=== PATIENT | female | born 1975 | race African-American/Black ===

== ENCOUNTER 2016-12-31 21:17 | Emergency (ER) | payer OTHER ==
[2016-12-31 23:52] VITALS: BP 137/84
--- NOTE | 2016-12-31 23:55 | ED ---
Upper Extremity Pain - HPI Summary HPI Summary: C/O RT HAND PAIN FOR DAYS. ALSO LET LATERAL CHEST PAIN FOR DAYS. PATIENT HAS CHRONIC PAIN THROUGHOUT HER WHOLE BODY SO, IT IS DIFFICULT TO DETERMINE WHAT IS NEW OR CHRONIC PAIN. NO SOB. NO FEVER. NO CALF PAIN OR SWELLING. - History of Current Complaint Chief Complaint: UCGeneralIllness Stated Complaint: RT HAND/BACK PAIN-FALL Time Seen by Provider: 12/31/16 23:32 Hx Obtained From: Patient Hx Last Menstrual Period: 12/12/16 Mechanism Of Injury: Unknown - PATIENT FELL 1 1/2 WEEK AGO. Onset/Duration: Still Present Timing: Constant Pain Location: Hand, Other: - LEFT LATERAL CHEST Aggravating Factor(s): Movement Alleviating Factor(s): Nothing Associated Signs & Symptoms: Negative: Fever, SOB - Allergies/Home Medications Allergies/Adverse Reactions: Allergies Allergy/AdvReac Type Severity Reaction Status Date / Time fish Allergy Severe Anaphylatic Uncoded 12/31/16 22:21 Shock kiwi Allergy Intermediate Hives/Diff. Uncoded 12/31/16 22:21 Breathing/I tching melon Allergy Intermediate Hives/Diff. Uncoded 12/31/16 22:21 Breathing/I tching yellow fruits Allergy Mild Hives/Diff. Uncoded 12/31/16 22:21 Breathing/I tching avacado Allergy Hives/Diff. Uncoded 12/31/16 22:21 Breathing/I tching peanuts Allergy Anaphylatic Uncoded 12/31/16 22:21 Shock Home Medications: Home Medications Ascorbic Acid TAB* [Vitamin C TAB*] 1,500 mg PO BID 12/31/16 [History Confirmed 12/31/16] PMH/Surg Hx/FS Hx/Imm Hx Previously Healthy: No - CHRONIC PAIN Cardiovascular History: Denies: Hx Congestive Heart Failure, Hx Hypertension, Hx Pacemaker/ICD, Other Cardiovascular Problems/Disorders Respiratory History: Reports: Hx Asthma Denies: Hx Chronic Obstructive Pulmonary Disease (COPD), Other Respiratory Problems/Disorders - Surgical History Surgery Procedure, Year, and Place: ENDOMETIAL AND uterine fibroids,ovarian cysts 2008, tonsilectomy,right shoulder 2010, Infectious Disease History: No Infectious Disease History: Denies: Traveled Outside the [place] in Last 30 Days - Social History Alcohol Use: Rare Substance Use Type: Reports: None Hx Tobacco Use: No Smoking Status (MU): Never Smoked Tobacco Review of Systems Constitutional: Other - CHRONIC BODY PAIN Eyes: Negative ENT: Negative Positive: Other - LEFT LATERAL CHEST PAIN Negative: Shortness Of Breath Gastrointestinal: Negative Musculoskeletal: Other - CHRONIC PAIN Skin: Negative Neurological: Negative Psychological: Normal All Other Systems Reviewed And Are Negative: Yes Physical Exam Triage Information Reviewed: Yes Vital Signs On Initial Exam: Initial Vitals Temp Pulse Resp BP Pulse Ox 98.7 F 73 22 111/96 98 12/31/16 22:06 12/31/16 22:06 12/31/16 22:06 12/31/16 22:06 12/31/16 22:06 Vital Signs Reviewed: Yes Appearance: Positive: Well-Appearing Skin: Positive: Skin Color Reflects Adequate Perfusion Neck: Positive: Supple Respiratory/Lung Sounds: Positive: Clear to Auscultation, Breath Sounds Present , Decreased Breath Sounds Cardiovascular: Positive: Normal, RRR Abdomen Description: Positive: Nontender, Other: Bowel Sounds: Positive: Present Musculoskeletal: Positive: Pain @ - GENERALIZED Neurological: Positive: Normal Psychiatric: Positive: Normal Diagnostics - Vital Signs Vital Signs Temp Pulse Resp BP Pulse Ox 12/31/16 22:06 98.7 F 73 22 111/96 98 - Laboratory Lab Statement: Any lab studies that have been ordered have been reviewed, and results considered in the medical decision making process. Course/Dx - Course Assessment/Plan: RX NORCO. DISCHARGE HOME STABLE. - Diagnoses Provider Diagnoses: Hand pain, Rib pain on left side Discharge - Discharge Plan Condition: Stable Disposition: HOME Prescriptions: HYDROcodone/ACETAMIN 5-325 MG* [[place] 5-325 TAB*] 1 tab PO Q6H PRN #10 tab MDD 4 PRN Reason: Pain Additional Instructions: FOLLOW UP WITH YOUR DOCTOR FOR YOUR RIGHT HAND AND LEFT RIB PAIN. GO TO THE EMERGENCY DEPARTMENT FOR ANY WORSENING OF YOUR CONDITION; SHORTNESS OF BREATH, ABDOMINAL PAIN, YOU FEEL ILL OR QUESTIONS OR CONCERNS.
[2016-12-31] MEDS ORDERED: HYDROcodone/ACETAMIN 5-325 MG* 1 TAB PO ONE (23:59)
--- NOTE | 2017-01-01 07:41 | RAD ---
HISTORY: Trauma, left rib pain COMPARISONS: None VIEWS: 3, Frontal and oblique views of the left hemithorax. FINDINGS: There is no displaced rib fracture or pneumothorax. The visualized lungs are clear. IMPRESSION: NO DISPLACED RIB FRACTURE OR PNEUMOTHORAX.
--- NOTE | 2017-01-01 07:44 | RAD ---
HISTORY: Trauma, right hand pain COMPARISONS: December 23, 2016 VIEWS: 4, Frontal, lateral, and oblique views of the right hand FINDINGS: BONE DENSITY: Normal. BONES: There is no displaced fracture. JOINTS: There is no arthropathy. ALIGNMENT: There is no dislocation. SOFT TISSUES: Unremarkable. OTHER FINDINGS: None. IMPRESSION: NO ACUTE OSSEOUS INJURY. IF SYMPTOMS PERSIST, RECOMMEND REPEAT IMAGING.
== END 2017-01-01 00:17 | disposition home or self-care (01) ==
LOC: UCCORT 21:17
DX: M79.641 Pain in right hand (principal); R07.81 Pleurodynia; J45.909 Unspecified asthma, uncomplicated
CPT/HCPCS: 99213; G0463

== ENCOUNTER 2017-08-19 21:48 | Emergency (ER) | payer OTHER ==
[2017-08-19 22:16] VITALS: BP 153/87
--- NOTE | 2017-08-19 22:33 | UC ---
Knee Pain HPI - HPI Summary HPI Summary: WORSENING BILATERAL KNEE PAIN SINCE JUNE 2017, RIGHT WORSE THAN LEFT. CURRENTLY BEING EVALUATED BY DRS. 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 HAS FUTURE MRI OF KNEE/S SCHEDULED. PRESENTS TODAY DUE TO MEMORY OF HAVING TICK BITE IN JUNE, WOULD LIKE TESTING FOR LYME. - History of Current Complaint Chief Complaint: UCGeneralIllness Stated Complaint: POSSIBLE TICK BITE Time Seen by Provider: 08/19/17 21:49 Hx Obtained From: Patient Hx Last Menstrual Period: 08/17/17 Onset/Duration: Gradual Onset, Lasting Weeks, Still Present, Worse Since - PROGRESSIVE Severity Initially: Moderate Severity Currently: Severe Character: Dull, Aching, Stiffness Aggravating Factor(s): Movement, Weight Bearing Alleviating Factor(s): Rest, Position Associated Signs And Symptoms: Positive: Swelling Able to Bear Weight: Yes - Allergies/Home Medications Allergies/Adverse Reactions: Allergies Allergy/AdvReac Type Severity Reaction Status Date / Time Dust Mite Extract Allergy Shortness Verified 08/19/17 21:57 of Breath fish Allergy Severe Anaphylatic Uncoded 08/19/17 21:57 Shock kiwi Allergy Intermediate Hives/Diff. Uncoded 08/19/17 21:57 Breathing/I tching melon Allergy Intermediate Hives/Diff. Uncoded 08/19/17 21:57 Breathing/I tching yellow fruits Allergy Mild Hives/Diff. Uncoded 08/19/17 21:57 Breathing/I tching artificial sweetener Allergy Nausea And Uncoded 08/19/17 21:57 Vomiting avacado Allergy Hives/Diff. Uncoded 08/19/17 21:57 Breathing/I tching peanuts Allergy Anaphylatic Uncoded 08/19/17 21:57 Shock perfumes/ cleansing agents Allergy Shortness Uncoded 08/19/17 21:[address] CONTRAST AdvReac EXTREME Uncoded 08/19/17 21:57 NAUSEAS AND DISORIENTED FOR DAYS Home Medications: Home Medications Acetaminophen TAB* [Tylenol TAB*] 650 mg PO Q4H PRN 08/19/17 [History Confirmed 08/19/17] PMH/Surg Hx/FS Hx/Imm Hx Previously Healthy: Yes - Surgical History Surgical History: Yes Surgery Procedure, Year, and Place: ENDOMETRIAL AND uterine fibroids,ovarian cysts 2009,. tonsilectomy,. right shoulder 2011 - RCT - Family History Known Family History: Positive: Other - first cousin had a PE - Social History Lives: With Family Alcohol Use: None Substance Use Type: None Smoking Status (MU): Never Smoked Tobacco Review of Systems Constitutional: Negative Skin: Negative Eyes: Negative ENT: Negative Respiratory: Negative Cardiovascular: Negative Gastrointestinal: Negative Genitourinary: Negative Motor: Negative Neurovascular: Negative Musculoskeletal: Arthralgia - BILATERAL KNEES, Myalgia - BILATERAL KNEES Neurological: Negative Psychological: Negative Is Patient Immunocompromised?: No All Other Systems Reviewed And Are Negative: Yes Physical Exam Triage Information Reviewed: Yes Appearance: Well-Appearing, No Pain Distress, Well-Nourished Vital Signs: Initial Vital Signs Temp 97.4 F 08/19/17 22:04 Pulse 88 08/19/17 22:04 Resp 16 08/19/17 22:04 BP 153/87 08/19/17 22:04 Pulse Ox 99 08/19/17 22:04 Vital Signs Reviewed: Yes Eye Exam: Normal ENT Exam: Normal ENT: Positive: Normal ENT inspection Dental Exam: Normal Neck exam: Normal Neck: Positive: Supple, Nontender, No Lymphadenopathy Respiratory Exam: Normal Respiratory: Positive: Chest non-tender, Lungs clear, Normal breath sounds, No respiratory distress, No accessory muscle use Cardiovascular Exam: Normal Cardiovascular: Positive: RRR, No Murmur, Pulses Normal, Brisk Capillary Refill Abdominal Exam: Normal Abdomen Description: Positive: Nontender, No Organomegaly Musculoskeletal: Positive: ROM Intact, No Edema, Strength Limited @ - BILATERAL KNEES Neurological Exam: Normal Psychological Exam: Normal Skin Exam: Normal Knee Pain Course/Dx - Differential Dx/Diagnosis Differential Diagnosis/HQI/PQRI: Bursitis, Internal Derangement Of Knee, Patellofemoral Syndrome, Sprain, Strain, Other - TICK BORNE ILLNESS Provider Diagnoses: BILATERAL KNEE PAIN. REMOTE TICK BITE. Discharge - Discharge Plan Condition: Stable Disposition: HOME Patient Education Materials: Lyme Disease (ED), Knee Pain (ED), Arthralgia (ED) Referrals: Alfonzo Álvarez MD [Medical Doctor] - Karlos Ortiz MD [Primary Care Provider] -
--- NOTE | 2017-08-22 07:20 | UC ---
Progress - Progress Note Progress Note: lyme neg, not treated. remote tic bit per note
== END 2017-08-19 22:32 | disposition home or self-care (01) ==
LOC: UCCORT 21:48
DX: M25.562 Pain in left knee (principal); M25.561 Pain in right knee
CPT/HCPCS: 86618; 99211; G0463

== ENCOUNTER 2017-10-07 21:32 | Emergency (ER) | payer OTHER ==
[2017-10-07 22:12] VITALS: BP 133/53
--- NOTE | 2017-10-07 23:02 | UC ---
HPI Wound/Suture Re-check - HPI Summary HPI Summary: 42 y/o female presents to the urgent care requesting change of dressing s/p RT trigger and carpal tunnel release surgery 2 days ago. She was instructed to keep the dressing on until her post op appt next Wednesday10/15/2017. However Yesterday dressing was coming off on its own. She called the office and was instructed that she could redo the outer dressing. She did so with a friend who is a nurse. But when she did the dressing change she felt that the yellow dressing that is closest to the skin was moved. Also, her hand is swollen with mild pain . Seh was instructed to flex her finger 10X every hr. Seh was Rx Kathleen for pain. She is anxious that something is wrong with the incisions. DR Joshua ferrer the [facility] did surgery. ain is 2/10. Pt deneis fever, SOB, chest pain, numbness and tingling over the hand. - History Of Current Complaint Chief Complaint: UCUpperExtremity Stated Complaint: POST OPP LEFT HAND BANDAGE CHECK Time Seen by Provider: 10/07/17 22:19 Hx Obtained From: Patient Hx Last Menstrual Period: 08/17/17 Onset/Duration: Gradual Onset, Lasting Days - 2 days, Still Present Pain Intensity: 2 Pain Scale Used: 0-10 Numeric - Allergies/Home Medications Allergies/Adverse Reactions: Allergies Allergy/AdvReac Type Severity Reaction Status Date / Time Dust Mite Extract Allergy Shortness Verified 10/07/17 22:11 of Breath fish Allergy Severe Anaphylatic Uncoded 10/07/17 22:11 Shock kiwi Allergy Intermediate Hives/Diff. Uncoded 10/07/17 22:11 Breathing/I tching melon Allergy Intermediate Hives/Diff. Uncoded 10/07/17 22:11 Breathing/I tching yellow fruits Allergy Mild Hives/Diff. Uncoded 10/07/17 22:11 Breathing/I tching artificial sweetener Allergy Nausea And Uncoded 10/07/17 22:11 Vomiting avacado Allergy Hives/Diff. Uncoded 10/07/17 22:11 Breathing/I tching peanuts Allergy Anaphylatic Uncoded 10/07/17 22:11 Shock perfumes/ cleansing agents Allergy Shortness Uncoded 10/07/17 22:[address] CONTRAST AdvReac EXTREME Uncoded 10/07/17 22:11 NAUSEAS AND DISORIENTED FOR DAYS Home Medications: Home Medications Albuterol HFA INHALER* [Ventolin HFA Inhaler*] 2 puff INH Q4H PRN 10/07/17 [ History Confirmed 10/07/17] HYDROcodone/ACETAMIN 5-325 MG* [Kathleen 5-325 TAB*] 2 tab PO Q4H PRN 10/07/17 [ History Confirmed 10/07/17] Lactic Acid (Ammonium Lactate) [Lacy-Hydrolac 12] 12 % EX ONCE 10/07/17 [ History Confirmed 10/07/17] PMH/Surg Hx/FS Hx/Imm Hx - Additional Past Medical History Additional PMH: Carpal tunnel syndrome Previously Healthy: Yes Other Endocrine History: Reynard syndrome, unspecified autoimmune disorder Respiratory History: Asthma - Surgical History Surgical History: Yes Surgery Procedure, Year, and Place: Right hand trigger finger release and carpal tunnel. ENDOMETRIAL AND uterine fibroids/ovarian cysts 2008,. tonsilectomy,. right shoulder 2010 - RCT - Family History Known Family History: Positive: Cardiac Disease, Hypertension, Diabetes Family History: PE - Social History Occupation: Employed Full-time Lives: With Family Alcohol Use: None Substance Use Type: None Smoking Status (MU): Never Smoked Tobacco Review of Systems Constitutional: Negative Skin: Other - RT hand wound recheck s/p carpal tunel syndrome surgery Eyes: Negative ENT: Negative Respiratory: Negative Cardiovascular: Negative Gastrointestinal: Negative Genitourinary: Negative Motor: Negative Neurovascular: Negative Musculoskeletal: Negative Neurological: Negative Psychological: Negative Is Patient Immunocompromised?: No All Other Systems Reviewed And Are Negative: Yes Physical Exam Triage Information Reviewed: Yes Vital Signs: Initial Vital Signs Temp 97.1 F 10/07/17 22:06 Pulse 64 10/07/17 22:06 Resp 14 10/07/17 22:06 BP 133/53 10/07/17 22:06 - Additional Comments Vital Signs Reviewed: Yes General: well developed, well nourished female sitting in the examining table w/ o any apparent distress Eye Exam: Normal Eyes: Positive: Conjunctiva Clear - PERRLA, EOMI, fundi grossly normal ENT: Positive: Normal ENT inspection, Hearing grossly normal, Pharynx normal, TMs normal Neck: Positive: Supple, Nontender, No Lymphadenopathy Respiratory: Positive: Chest non-tender, Lungs clear, Normal breath sounds, No respiratory distress Cardiovascular: Positive: RRR, No Murmur, Pulses Normal, Brisk Capillary Refill Abdomen Description: Positive: Nontender, No Organomegaly, Soft. Negative: CVA Tenderness (R), CVA Tenderness (L) Bowel Sounds: Positive: Present Musculoskeletal: Positive: Strength Intact, ROM Intact, No Edema Neurological: Positive: Alert, Muscle Tone Normal Psychological Exam: Normal Skin: Positive: Positive RT hand with william bandage covering forearm, wrist and hand. The william bandage close to the fingers is loose. William bandage of the RT hand removed . Palmar side with small incision w/ sutures in place near the # 4th metacarpal, healing well. No swelling, erythema, or yellowish discharge observed. FROM of all fingers. Course/Dx - Course Course Of Treatment: 42 y/o female presents to the urgent care requesting change of dressing s/p RT trigger and carpal tunnel release surgery 2 days ago. She was instructed to keep the dressing on until her post op appt next Wednesday10/15/2017. However Yesterday dressing was coming off on its own. She called the office and was instructed that she could redo the outer dressing. She did so with a friend who is a nurse. But when she did the dressing change she felt that the yellow dressing that is closest to the skin was moved. Also, her hand is swollen with mild pain . Seh was instructed to flex her finger 10X every hr. Seh was Rx Kathleen for pain. She is anxious that something is wrong with the incisions. DR Lewis form the [facility] did surgery. ain is 2/10. Pt deneis fever, SOB, chest pain, numbness and tingling over the hand. Hx obtained. Palmar side with small incision w/ sutures in place near the RT #4th metacarpal , healing well. No swelling, erythema, or yellowish discharge observed. FROM of all fingers. Occlusive dressing applied over wound, and covered with sterile gauze and wrapped with william bandaged. Pt neurovascular intact. Pt Advised to f/u with DR Lewis if she developes any signs of infection. Pt understood and agreed [facility] plan of care. - Differential Dx - Laceration/Wound Differential Diagnoses: Cellulitis, Dehiscence, Healing Wound, Hematoma Provider Diagnoses: 1- RT hand swelling and wound check up s/p capel tunnel release surgery Discharge - Discharge Plan Condition: Stable Disposition: HOME Patient Education Materials: Acute Wound Care (ED) Referrals: Karlos Ortiz MD [Primary Care Provider] - 2 Days Additional Instructions: 1- Keep wound clean and dry and cover with the dressing until you see DR Lewis 2-Cotinue take Kathleen as directed by surgeon for pain or swelling. 5- If you develop fever or redness around your wound please return to the urgetn care or flu with PCP for furthr management
== END 2017-10-07 23:07 | disposition home or self-care (01) ==
LOC: UCCORT 21:32
DX: M79.89 Other specified soft tissue disorders (principal); Z48.01 Encounter for change or removal of surgical wound dressing; I73.00 Raynaud's syndrome without gangrene; D89.89 Other specified disorders involving the immune mechanism, not elsewhere classified; J45.909 Unspecified asthma, uncomplicated; Z91.041 Radiographic dye allergy status
CPT/HCPCS: 99211; G0463

== ENCOUNTER 2017-11-05 10:16 | Emergency (ER) | payer OTHER ==
[2017-11-05 13:17] VITALS: BP 147/78
--- NOTE | 2017-11-05 13:39 | UC ---
General HPI - HPI Summary HPI Summary: pt states she attemptd to keep 2 dogs from going after her service dog around 4: 30am yesterday. in the process, she fell and injured her knees(points to shins) and L hand palm plus L middle finger. she is also c/o her voice being hoarse and chest being sore from calling for help and cough from calling for help. denied any other injury and notes the knee are just a little sore. - History of Current Complaint Chief Complaint: UCLowerExtremity Stated Complaint: L HAND COMPLAINT Time Seen by Provider: 11/05/17 13:24 Hx Obtained From: Patient Hx Last Menstrual Period: 10/22/17 Onset/Duration: Sudden Onset Timing: Constant Pain Intensity: 8 Character: "sore" Aggravating: L hand - movement. shins -nothing Associated Signs & Symptoms: Positive: Other - hoarse voice - Allergy/Home Medications Allergies/Adverse Reactions: Allergies Allergy/AdvReac Type Severity Reaction Status Date / Time fish Allergy Severe Anaphylatic Uncoded 10/07/17 22:11 Shock kiwi Allergy Intermediate Hives/Diff. Uncoded 10/07/17 22:11 Breathing/I tching melon Allergy Intermediate Hives/Diff. Uncoded 10/07/17 22:11 Breathing/I tching yellow fruits Allergy Mild Hives/Diff. Uncoded 10/07/17 22:11 Breathing/I tching artificial sweetener Allergy Nausea And Uncoded 10/07/17 22:11 Vomiting [place]acado Allergy Hives/Diff. Uncoded 10/07/17 22:11 Breathing/I tching DUST MITES Allergy Shortness Uncoded 11/05/17 13:01 of Breath peanuts Allergy Anaphylatic Uncoded 10/07/17 22:11 Shock perfumes/ cleansing agents Allergy Shortness Uncoded 10/07/17 22:[address] CONTRAST AdvReac EXTREME Uncoded 10/07/17 22:11 NAUSEAS AND DISORIENTED FOR DAYS Home Medications: Home Medications Fexofenadine HCl [Allergy Relief] 60 mg PO 11/05/17 [History] Ketoconazole 2 % CREAM (NF) [Nizoral 2% CREAM (NF)] 1 applic TOPICAL 11/05/17 [ History] PMH/Surg Hx/FS Hx/Imm Hx Previously Healthy: No - pt refusing to tell me her mental hx citing " not relevant". Respiratory History: Asthma - Surgical History Surgical History: Yes Surgery Procedure, Year, and Place: Right hand trigger finger release and carpal tunnel. ENDOMETRIAL AND uterine fibroids/ovarian cysts 2009,. tonsilectomy,. right shoulder 2011 - RCT - Family History Known Family History: Positive: Cardiac Disease, Hypertension, Diabetes Family History: PE - Social History Occupation: Unemployed Lives: Alone Alcohol Use: None Substance Use Type: None Smoking Status (MU): Never Smoked Tobacco - Immunization History Immunizations Comment: UTD Review of Systems Constitutional: Negative Skin: Negative Eyes: Negative ENT: Negative Respiratory: Negative Cardiovascular: Negative Gastrointestinal: Negative Genitourinary: Negative Motor: Negative Neurovascular: Negative Musculoskeletal: Other: - sore L palm and L middle finger Neurological: Negative Psychological: Negative Is Patient Immunocompromised?: No All Other Systems Reviewed And Are Negative: Yes Physical Exam Triage Information Reviewed: Yes Appearance: Well-Appearing Vital Signs: Initial Vital Signs Temp 98.4 F 11/05/17 13:09 Pulse 89 11/05/17 13:09 Resp 16 11/05/17 13:09 BP 147/78 11/05/17 13:09 Pulse Ox 100 11/05/17 13:09 Vital Signs Reviewed: Yes Eye Exam: Normal ENT: Positive: Pharynx normal, TMs normal, Hoarse voice, Uvula midline. Negative: Nasal congestion, Nasal drainage, Tonsillar swelling, Tonsillar exudate, Trismus, Sinus tenderness Neck: Positive: Supple, Nontender, No Lymphadenopathy Respiratory: Positive: Lungs clear, Normal breath sounds, No respiratory distress Cardiovascular: Positive: RRR, No Murmur Abdomen Description: Positive: Nontender, No Organomegaly, Soft Musculoskeletal: Positive: Other: - BLE's= no deformity, swelling, discoloration or abrasions. mildly tender to shins. s/v/m inatct with normal steady gait. L hand without gross deformity, swelling or discoloration. Middle finger and palm are tender. Hand has full s/v/m function with no ligamnet laxity. Neurological: Positive: Alert Psychological: Positive: Age Appropriate Behavior Skin Exam: Normal Diagnostics - Laboratory Diagnostic Studies Completed/Ordered: xray=nad Course/Dx - Course Course Of Treatment: shins mildly tender c/w contusion. knees are atraumatic. no concern with fx to either lower leg. L hand has no fx and no ligament laxity to the middle finger. hand c/w contusion. no infections. - Differential Dx - Multi-Symptom Provider Diagnoses: Contusions to shins and L hand, Laryngitis Discharge - Discharge Plan Condition: Stable Disposition: HOME Patient Education Materials: Contusion in Adults (ED), Laryngitis (ED) Referrals: Karlos Ortiz MD [Primary Care Provider] - 7 Days
--- NOTE | 2017-11-05 13:52 | RAD ---
Indication: Left hand injury. 4 views of the left hand demonstrates no fracture. No other bone or joint abnormality is noted. IMPRESSION: No fracture of the left hand is noted.
== END 2017-11-05 14:18 | disposition home or self-care (01) ==
LOC: UCCORT 10:16
DX: S80.12XA Contusion of left lower leg, initial encounter (principal); S80.11XA Contusion of right lower leg, initial encounter; S60.222A Contusion of left hand, initial encounter; X58.XXXA Exposure to other specified factors, initial encounter; Y93.89 Activity, other specified; Y92.9 Unspecified place or not applicable; J04.0 Acute laryngitis
CPT/HCPCS: 99212; G0463

== ENCOUNTER 2017-11-16 18:46 | Emergency (ER) | payer OTHER ==
[2017-11-16 20:42] VITALS: BP 144/86
--- NOTE | 2017-11-16 21:48 | ED ---
Head Injury - HPI Summary HPI Summary: 42 yr old female was knocked over by dogs a couple weeks ago. She states she landed on her left side. She is a little amnestic to the event, believes she may have hit her head, she complains of pain to the posterior cervical spine that radiates up into her head. No NV. No focal weakness or numbness. No bowel or bladder incontinence. She has chronic right hand splint from an old injury. Her neck pain is worse with range of motion. - History Of Current Complaint Chief Complaint: UCGeneralIllness Stated Complaint: HEADACHE/NECK PAIN Hx Last Menstrual Period: 11/10/17 Pain Intensity: 8 - Allergies/Home Medications Allergies/Adverse Reactions: Allergies Allergy/AdvReac Type Severity Reaction Status Date / Time fish Allergy Severe Anaphylatic Uncoded 11/16/17 20:42 Shock kiwi Allergy Intermediate Hives/Diff. Uncoded 11/16/17 20:42 Breathing/I tching melon Allergy Intermediate Hives/Diff. Uncoded 11/16/17 20:42 Breathing/I tching yellow fruits Allergy Mild Hives/Diff. Uncoded 11/16/17 20:42 Breathing/I tching artificial sweetener Allergy Nausea And Uncoded 11/16/17 20:42 Vomiting avacado Allergy Hives/Diff. Uncoded 11/16/17 20:42 Breathing/I tching DUST MITES Allergy Shortness Uncoded 11/16/17 20:42 of Breath peanuts Allergy Anaphylatic Uncoded 11/16/17 20:42 Shock perfumes/ cleansing agents Allergy Shortness Uncoded 11/16/17 20:[address] CONTRAST AdvReac EXTREME Uncoded 11/16/17 20:42 NAUSEAS AND DISORIENTED FOR DAYS PMH/Surg Hx/FS Hx/Imm Hx Endocrine/Hematology History: Denies: Hx Diabetes Cardiovascular History: Denies: Hx Congestive Heart Failure, Hx Hypertension, Hx Pacemaker/ICD, Other Cardiovascular Problems/Disorders Respiratory History: Reports: Hx Asthma Denies: Hx Chronic Obstructive Pulmonary Disease (COPD), Other Respiratory Problems/Disorders History: Denies: Hx Renal Disease Sensory History: Denies: Hx Hearing Aid Psychiatric History: Denies: Hx Panic Disorder - Surgical History Surgery Procedure, Year, and Place: Right hand trigger finger release and carpal tunnel. ENDOMETRIAL AND uterine fibroids/ovarian cysts 2009,. tonsilectomy,. right shoulder 2011 - [facility] Infectious Disease History: No Infectious Disease History: Denies: Traveled Outside the [place] in Last 30 Days - Family History Known Family History: Positive: Cardiac Disease, Hypertension, Diabetes Family History: PE - Social History Alcohol Use: None Substance Use Type: Reports: None Hx Tobacco Use: No Smoking Status (MU): Never Smoked Tobacco Review of Systems Positive: Other - neck pain Positive: Headache All Other Systems Reviewed And Are Negative: Yes Physical Exam Triage Information Reviewed: Yes Vital Signs On Initial Exam: Initial Vitals Temp Pulse Resp BP Pulse Ox 98.1 F 87 15 144/86 100 11/16/17 20:34 11/16/17 20:34 11/16/17 20:34 11/16/17 20:34 11/16/17 20:34 Vital Signs Reviewed: Yes Appearance: Positive: Well-Appearing, No Pain Distress Skin: Positive: Warm, Skin Color Reflects Adequate Perfusion Head/Face: Positive: Normal Head/Face Inspection Eyes: Positive: EOMI, SANDHYA ENT: Positive: Normal ENT inspection Neck: Positive: Tenderness @ - diffuse cervical spine Respiratory/Lung Sounds: Positive: Clear to Auscultation, Breath Sounds Present Cardiovascular: Positive: RRR. Negative: Murmur Musculoskeletal: Positive: Other - she has a right wrist splint on. Neurological: Positive: Sensory/Motor Intact, Alert, Oriented to Person Place, Time, CN Intact II-III, Speech Normal Psychiatric: Positive: Normal - Nette Coma Scale Best Eye Response: 4 - Spontaneous Best Motor Response: 6 - Obeys Commands Best Verbal Response: 5 - Oriented Coma Scale Total: 15 Diagnostics - Vital Signs Vital Signs Temp Pulse Resp BP Pulse Ox 11/16/17 20:34 98.1 F 87 15 144/86 100 - Laboratory Lab Statement: Any lab studies that have been ordered have been reviewed, and results considered in the medical decision making process. 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 CT brain is negative. The patient has no acute Fractures on CT c spine, and ct brain is ok. final reports reviewed. Plan DC home Follow up with PMD. - Diagnoses Provider Diagnoses: Spondylosis of cervical spine, Closed head injury, Headache, Hypertension Discharge - Discharge Plan Condition: Good Disposition: HOME Patient Education Materials: Cervical Strain (ED), Acute Neck Pain (ED), Acute Headache (DC), Hypertension (ED) Referrals: Karlos rOtiz MD [Primary Care Provider] -
[2017-11-16] MEDS ORDERED: Ibuprofen TAB* 600 MG PO ONE (21:56)
[2017-11-16] MEDS ORDERED: Acetaminophen TAB* 325 MG PO ONE (21:56)
--- NOTE | 2017-11-16 21:59 | RAD ---
INDICATION: Neck pain for one week with worsening. COMPARISON: July 22, 2015 CT TECHNIQUE: Multidetector CT images foramen magnum to lung apices without contrast. Multiplanar reformation. REPORT: Normal vertebral alignment accounting for exam positioning without spondylolisthesis or subluxation at any level. Negative for cervical vertebral body or posterior element fracture. Negative for paravertebral hematoma. Osteophytosis and moderate disc space narrowing at C5-C6 with associated reactive endplate sclerosis without significant interval change. Dorsal disc osteophyte complex results in mild impression on the ventral margin of the thecal sac with congenitally generous pedicles mitigate against more significant central canal stenosis. Negative for foraminal stenosis. The remaining disc levels are unremarkable. IMPRESSION: 1. No traumatic injury of the cervical spine. 2. Moderate C5-C6 degenerative spondylosis with only mild resulting impression on the ventral margin of the thecal sac without significant interval change.
--- NOTE | 2017-11-16 22:08 | RAD ---
Indication: Headache from posterior head to front of head. Light sensitivity. Question trauma. Comparison: No relevant prior exams available on the [facility] [place]. Technique: Noncontrast CT vertex of skull through foramen magnum. Report: The sulci, ventricles, and basal cisterns are normal for age. Hutchinson matter white matter differentiation is preserved without evidence for edema. No intra or extra axial hemorrhage, mass, or fluid collection detected. Unremarkable visualized orbital contents. Unremarkable calvarium and skull base. Unremarkable scalp. The visualized paranasal sinuses and mastoid air spaces are clear. IMPRESSION: No CT evidence for traumatic brain injury or acute intracranial process. Negative exam.
== END 2017-11-16 22:35 | disposition home or self-care (01) ==
LOC: UCCORT 18:46
DX: M47.9 Spondylosis, unspecified (principal); S09.90XA Unspecified injury of head, initial encounter; R51 Headache; I10 Essential (primary) hypertension; W54.1XXA Struck by dog, initial encounter; Y92.9 Unspecified place or not applicable
CPT/HCPCS: 70450; 72125; 99212; A9270-GY; G0463